=== PATIENT | female | born 2005 | race American Indian/Alaskan Native ===

== ENCOUNTER 2024-10-16 09:47 | Emergency (ER) | payer OTHER, SELFPAY ==
[2024-10-16 10:08] VITALS: BP 135/82; PULSE 83; RESP 18; TEMP 37; O2SAT 100; BMI 46.9
--- NOTE | 2024-10-16 10:13 | XR_ITS ---
Examination: Humerus 2 views left Technique: Humerus, AP lateral 2 views Date and time of exam: October 16, 2024 1001 hrs. Comparison 07/04/2023 Indications: Postop reduction internal fixation fracture humeral shaft over 15/01/2023 Findings: Operative reduction internal fixation fracture humeral shaft Suspicious for nonunion at the fracture site Intramedullary himanshu satisfactory position although there is pronounced radiolucency surrounding the intramedullary himanshu Impression: Recommend CT scan humerus follow-up to exclude nonunion at the humeral fracture site as well as to confirm loosening of the orthopedic intramedullary femoral himanshu versus osteomyelitis
[2024-10-16] MEDS: HYDROcodone/APAP 5/325 TABLET 1 TAB PO (10:18)
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
== END 2024-10-16 11:45 | disposition home or self-care (01) ==
PROVIDERS: Emergency Provider Emergency Medicine; PCP Nurse Practitioner Family
DX: S42.302P Unspecified fracture of shaft of humerus, left arm, subsequent encounter for fracture with malunion (principal); V49.9XXD Car occupant (driver) (passenger) injured in unspecified traffic accident, subsequent encounter
CPT/HCPCS: 73060; 99283; A9270

== ENCOUNTER → 2025-01-16 | Outpatient (CLI) | payer OTHER, SELFPAY ==
[2025-01-16 15:12] LABS: Misc Send Out* See Sep Rpt
[2025-01-16 16:12] LABS: Basophils % (Auto) 0 % (0-2.5); Eosinophils # (Auto) 0.1 Thou/mm3 (0.0-0.5); Eosinophils % (Auto) 1 % (0-10); Hemoglobin 12.7 g/dL (12.0-16.0); Immature Granulocytes % (Auto) 0 % (0-0); Immature Granulocytes Auto 0.03 Thou/mm3 (0.00-0.00); Lymphocytes % (Auto) 22 % (10-50); Mean Corpuscular HGB Conc 33.4 g/dl (31.0-37.0); Mean Corpuscular Hemoglobin 27.5 pg (25.0-35.0); Mean Corpuscular Volume 82 fL (80-100); Monocytes # (Auto) 0.4 Thou/mm3 (0.0-0.8); Monocytes % (Auto) 4 % (0-12); Neutrophils # (Auto) 6.6 Thou/mm3 (1.8-7.7); Neutrophils % (Auto) 72 % (37-80); Nucleated Red Blood Cell % 0 /100 WBC (0); Platelet Count 360 Thou/mm3 (140-440); RDW Standard Deviation 40.2 fL (36.4-46.3); Red Blood Count 4.61 Miln/mm3 (4.00-5.20); White Blood Count 9.1 Thou/mm3 (3.6-11.0)
[2025-01-16 16:42] LABS: Parathyroid Hormone Intact 119.2 pg/ml (18.5-88.0)
[2025-01-16 16:46] LABS: Sed Rate (ESR) 30 mm/hr (0-20)
[2025-01-16 16:50] LABS: Albumin, Serum 4.7 gm/dL (3.5-5.0); Alkaline Phosphatase 84 U/L (46-116); C-Reactive Protein 1.1 mg/dL (0.0-0.9); Calcium 9.3 mg/dL (8.3-10.6); Phosphorous 3.6 mg/dL (2.4-5.1); Prealbumin 25.2 mg/dL (10.0-40.0); Thyroid Stimulating Hormone 1.36 uIU/mL (0.55-4.78); Total Protein 7.8 gm/dL (5.7-8.2)
[2025-01-16 16:51] LABS: Vitamin D 25 Hydroxy Total 13.3 ng/mL (7.3-40.2)
== END | disposition home or self-care (01) ==
LOC: COPL 14:25
PROVIDERS: PCP Physician Assistant; Referring Provider Student in an Organized Health Care Education/Training Program; Visit Provider Student in an Organized Health Care Education/Training Program
DX: S42.302A Unspecified fracture of shaft of humerus, left arm, initial encounter for closed fracture (principal); X58.XXXA Exposure to other specified factors, initial encounter
CPT/HCPCS: 36415; 82040; 82306; 82310; 83970; 84075; 84100; 84134; 84155; 84443; 85025; 85652; 86140